=== PATIENT | female | born 1980 | race Caucasian/White ===

== ENCOUNTER 2017-06-26 17:03 | Emergency (ER) | payer SELFPAY ==
--- NOTE | 2017-06-26 18:34 | RAD ---
INDICATION: Possible foreign body COMPARISON: None TECHNIQUE: PA and lateral dual-energy views were obtained. FINDINGS: Bones/Soft Tissues: There are no acute bony findings. Cardiomediastinal: The cardiomediastinal silhouette is normal. Lungs: There are no infiltrates. Pleura: There are no pleural effusions. Other: None IMPRESSION: NEGATIVE EXAMINATION.
--- NOTE | 2017-06-26 18:47 | ED ---
Abdominal Pain/Female - HPI Summary HPI Summary: Pt here w/ swallowing a piece of hot chicken last night at 9:30pm - unsure if she swallowed a bone or simply soft food but has persistent sharp pain shooting into her epigastrium radiating straight back into into her back. Worse w/ deep breath or speaking too much. Has been able to eat w/o difficulty since but is painful to drink water room temperature and cold beverages. Denies nausea, vomiting, diarrhea - has not had a BM since this happened but feels like she could go soon. No lower ab pain, bloating or increased gas. Denies h/o gastric issues, pulmonary issue or any health issues at all. LMP 2 weeks ago and partner w/ vasectomy. - History of Current Complaint Chief Complaint: EDForeignBodyEsophag Stated Complaint: FO IN THROAT Time Seen by Provider: 06/26/17 17:32 Hx Obtained From: Patient Pain Intensity: 2 PMH/Surg Hx/FS Hx/Imm Hx Previously Healthy: Yes GI History: Denies: Hx Cirrhosis, Hx Crohn's Disease, Hx Diverticulosis, Hx Gall Bladder Disease, Hx Gastroesophageal Reflux Disease, Hx Gastrointestinal Bleed, Hx Hiatal Hernia, Hx Irritable Bowel, Hx Ulcer - Cancer History Hx Chemotherapy: No Hx Radiation Therapy: No Infectious Disease History: No Infectious Disease History: Denies: Traveled Outside the [place] in Last 30 Days - Family History Known Family History: Positive: None - Social History Occupation: Employed Full-time Lives: With Family Alcohol Use: None Hx Substance Use: No Substance Use Type: Reports: None Hx Tobacco Use: No Smoking Status (MU): Never Smoked Tobacco Review of Systems Constitutional: Negative Negative: Fever, Chills, Fatigue Eyes: Negative ENT: Negative Cardiovascular: Other - see HPI Respiratory: Negative Negative: Shortness Of Breath, Cough Positive: Abdominal Pain. Negative: Vomiting, Diarrhea, Nausea Positive: no symptoms reported Musculoskeletal: Other - see HPI Skin: Negative Neurological: Negative Psychological: Normal All Other Systems Reviewed And Are Negative: Yes Physical Exam Triage Information Reviewed: Yes Vital Signs On Initial Exam: Initial Vitals Temp Pulse Resp BP Pulse Ox 98.8 F 92 18 150/82 100 06/26/17 17:04 06/26/17 17:04 06/26/17 17:04 06/26/17 17:04 06/26/17 17:04 Vital Signs Reviewed: Yes Appearance: Positive: Well-Appearing, No Pain Distress, Well-Nourished Skin: Positive: Warm, Dry Head/Face: Positive: Normal Head/Face Inspection Eyes: Positive: Normal, EOMI, Conjunctiva Clear - anicteric sclera Neck: Positive: Supple, Nontender Respiratory/Lung Sounds: Positive: Clear to Auscultation, Breath Sounds Present. Negative: Rales, Rhonchi, Stridor, Tracheal Deviation, Wheezes Cardiovascular: Positive: Normal, RRR, S1, S2 Abdomen Description: Positive: No Organomegaly, Soft, Other: - epigastric TTP Bowel Sounds: Positive: Present Pelvic Exam: Positive: other - deferred Musculoskeletal: Positive: Normal, Strength/ROM Intact Neurological: Positive: Normal, Sensory/Motor Intact, Alert, Oriented to Person Place, Time, CN Intact II-III Psychiatric: Positive: Normal - Sandhya Coma Scale Coma Scale Total: 15 Diagnostics - Vital Signs Vital Signs Temp Pulse Resp BP Pulse Ox 06/26/17 17:04 98.8 F 92 18 150/82 100 - Laboratory Diagnostic Studies Comment: XR: report and image do not reveal FB - spoke w/ radiologist to confirm no FB observed and no free air - he agrees. Lab Statement: Any lab studies that have been ordered have been reviewed, and results considered in the medical decision making process. Abdominal Pain Fem Course/Dx - Diagnoses Provider Diagnoses: Epigastric abdominal pain Discharge - Discharge Plan Referrals: No Primary Care Phys,NOPCP [Primary Care Provider] -
[2017-06-26 19:33] VITALS: BP 142/76
== END 2017-06-26 19:32 | disposition home or self-care (01) ==
LOC: ED 17:03
DX: R10.13 Epigastric pain (principal)
CPT/HCPCS: 71020; 99282

== ENCOUNTER 2024-03-23 06:51 | Observation (INO) ==
[2024-03-23] MEDS ORDERED: oxyCODONE SR 10 mg TAB ONE (07:42)
[2024-03-23] MEDS ORDERED: Ondansetron 4 mg VIAL 2 MG/ML 2 ml VIAL ONE (07:42)
[2024-03-23] MEDS ORDERED: Scopolamine 1 mg/72hr PATCH ONE (07:43)
[2024-03-23] MEDS ORDERED: Clindamycin 900 MG/50 **NS BAG 900 MG/50 ML BAG ONE (07:43)
[2024-03-23 08:00] LABS: Hematocrit 38.7 % (35-45); Hemoglobin 13.4 g/dL (11.5-14.3); Mean Corpuscular Hemoglobin 31.5 pg (27-33); Mean Corpuscular Hgb Conc 34.7 g/dL (31-36); Mean Corpuscular Volume 90.9 fL (80-97); Red Blood Count 4.26 10^6/uL (3.63-4.92); Red Cell Distribution Width 12.5 % (12-17); White Blood Count 4.1 10^3/uL (3.8-11.8)
[2024-03-23] MEDS ORDERED: fentaNYL 250 mcg/5 ml 50 MCG/ML 5 ml VIAL (250 MCG) ONE (08:01)
[2024-03-23] MEDS ORDERED: Lidocaine 1% VIAL 10 MG/ML 30 ML VIAL ONE (08:01)
[2024-03-23] MEDS ORDERED: nitroGLYCERIN DRIP 25,000 MCG/250 ML BTL ONE (08:01)
[2024-03-23] MEDS ORDERED: Iohexol 350 (CONTRAST) 100 ML PAK IV ONE ×2 (08:01→08:16)
[2024-03-23] MEDS ORDERED: Heparin 2 UNITS/ML IVPREMIX 3,000 UNIT/1,500 ML BAG IV ONE (08:01)
[2024-03-23] MEDS ORDERED: Midazolam 5 mg/5 ml VIAL 1 mg/ml 5 ml VIAL (5 mg) ONE (08:01)
[2024-03-23 08:18] LABS: Activated Partial Thrombo Time 31.5 seconds (26.0-38.0); INR 0.96 (0.85-1.14)
[2024-03-23 08:26] LABS: ABS Basophils 0.1 10^3/uL (0.0-0.1); ABS Eosinophils 0.2 10^3/uL (0.0-0.5); ABS Lymphocytes 1.3 10^3/uL (1.0-4.8); ABS Monocytes 0.6 10^3/uL (0.0-0.9); ABS Neutrophils 2.1 10^3/uL (1.5-7.6); ABS Nucleated RBC 0.01 10^3/ul; Eosinophil % 4.2 %; Lymphocyte % 30.4 %; Mean Platelet Volume 9.5 fL (7.5-11.2); Nucleated Red Blood Cells % 0.1 %/100WBC (0.0-0.8); Platelet Count 221 10^3/uL (150-450)
[2024-03-23 08:34] LABS: Calcium 9.2 mg/dL (8.6-10.3); Creatinine, Serum 0.61 mg/dL (0.51-0.95); Potassium 3.6 mmol/L (3.5-5.0); eGFR CKD-EPI 112.3 (>60)
[2024-03-23] MEDS ORDERED: Naloxone 0.4 mg VIAL 0.4 mg/ml 1 ml VIAL IV PUSH PRN (08:34)
[2024-03-23] MEDS ORDERED: Flumazenil 0.5 mg/5 ml 0.1 MG/ML 5 ml VIAL IV PRN (08:34)
[2024-03-23 08:37] LABS: HCG Pregnancy 0.71 mIU/mL
[2024-03-23] MEDS ORDERED: HYDROmorphone 0.5 MG/0.5 ML SYRINGE ONE ×2 (09:37→10:04)
[2024-03-23] MEDS: NS 0.9% 1,000 ML IV SCH (10:20)
[2024-03-23] MEDS: Midazolam 10 mg/10 ml VIAL 1 mg/ml 10 ml VIAL (10 mg) IV SLOW PU ONE (10:26)
[2024-03-23] MEDS: fentaNYL 100 mcg/2 ml 50 MCG/ML VIAL IV SLOW PU ONE (10:26)
[2024-03-23] MEDS ORDERED: HYDROmorphone 1 MG/1 ML SYRINGE ONE (11:35)
[2024-03-23] MEDS: HYDROmorphone 1 MG/1 ML SYRINGE IV SLOW PU PRN (11:40)
[2024-03-23] MEDS ORDERED: Lorazepam PYXIS KEY PRN (12:34)
[2024-03-23] MEDS: Ondansetron 4 mg VIAL 2 MG/ML 2 ml VIAL IV SCH (13:39)
[2024-03-23] MEDS: LORazepam 2 mg VIAL 1 ml IV PUSH PRN (20:47)
[2024-03-24] MEDS ORDERED: HYDROcodone/ACETAMIN 5/325 mg TAB PO PRN (09:16)
[2024-03-24] MEDS: Influenza Vaccine *TRI* 2024-25* 0.5 ML SYRINGE IM ONE (10:07)
[2024-03-24 10:20] VITALS: BP 109/84
[2024-03-24] MEDS ORDERED: Ketorolac 10 mg TAB (NF) PO SCH (14:00)
== END 2024-03-24 11:40 | disposition home or self-care (01) ==
LOC: SSU 06:51 → CHICATH 06:51
PROVIDERS: ADMIT Hospitalist; ATTEND Radiology Diagnostic Radiology
PROC: ANG.UFE (2024-03-23 08:15)